=== PATIENT | male | born 1980 | race Caucasian/White ===

== ENCOUNTER → 2016-10-10 | Outpatient (CLI) | payer BC ==
[~2016-10-10] VITALS: Ht 180.3 cm; Wt 79.4 kg
[~2016-10-10] MED LIST: CATHETER FLUSH 10 ML SYR IV PRN
[2016-10-10 07:56] VITALS: BP 121/67
[2016-10-10 08:18] VITALS: BP 122/69
[2016-10-10 08:29] VITALS: BP 185/95
== END ==
LOC: CARD 07:20
PROVIDERS: ATTEND Nurse Practitioner Family
DX: R07.9 Chest pain, unspecified (principal)
CPT/HCPCS: 78452; 93017

== ENCOUNTER → 2016-11-03 | Outpatient (CLI) | payer BC ==
[~2016-11-03] MED LIST changes: +IOHEXOL 350 MG/ML 100 ML (OMNIPAQUE 350) VIAL IV ONE; +NS 100 ML (IVPB) BAG IV ONE
--- NOTE | 2016-11-03 10:55 | Diagnostic Imaging Report ---
PROCEDURE: CT cervical spine without contrast. TECHNIQUE: Multiple contiguous axial images were obtained through the cervical spine without the use of intravenous contrast. Sagittal and coronal reformations were then performed. INDICATION: Neck pain with pressure radiating to the base of the skull. COMPARISON: None. DISCUSSION: No acute fracture, subluxation, or other osseous abnormality identified. No significant degenerative disease. Alignment is anatomic. Shotty appearing lymph nodes are noted bilaterally, likely reactive. Otherwise the visualized soft tissues are unremarkable. IMPRESSION: 1. Negative cervical spine CT. Dictated by: Dictated on workstation # [id number]
--- NOTE | 2016-11-03 10:58 | Diagnostic Imaging Report ---
PROCEDURE: CT head with and without contrast. TECHNIQUE: Multiple contiguous axial images were obtained through the brain before and after the administration of intravenous contrast. Indication: Headache and neck pain. Comparison: None. Discussion: No intracranial hemorrhage, mass, midline shift, or hydrocephalus. The ventricles and sulci are normal size and configuration for age. The visualized orbits, paranasal sinuses, mastoid air cells, and calvarium are unremarkable. No abnormal contrast enhancement identified. Impression: 1. Negative head CT without and with contrast. Dictated by: Dictated on workstation # [id number]
== END ==
LOC: RAD 09:51
PROVIDERS: ATTEND Internal Medicine
DX: R51 Headache (principal); M54.2 Cervicalgia
CPT/HCPCS: 70470; 72125

== ENCOUNTER 2016-12-31 05:41 | Outpatient (CLI) | payer BC ==
[~2016-12-31] VITALS: Ht 180.3 cm; Wt 77.1 kg
[2016-12-31] MEDS ORDERED: ARMO250T2 PO (12:44)
[2016-12-31] MEDS ORDERED: ATOM80CA PO (12:44)
[2016-12-31] MEDS ORDERED: ACYC400T PO (12:44)
[2016-12-31] MEDS ORDERED: BUSP10TA95 PO (12:46)
== END 2016-12-31 12:51 ==
LOC: PREOP 05:41
PROVIDERS: ATTEND Surgery
DX: Z01.818 Encounter for other preprocedural examination (principal); K82.4 Cholesterolosis of gallbladder

== ENCOUNTER 2017-01-02 05:54 | Day surgery (SDC) | payer BC ==
[~2017-01-02] VITALS: Ht 180.3 cm; Wt 77.1 kg
[~2017-01-02 05:54] MED LIST changes: +ACYC400T PO; +ARMO250T2 PO; +ATOM80CA PO; +BUSP10TA95 PO; -CATHETER FLUSH 10 ML SYR IV PRN; -IOHEXOL 350 MG/ML 100 ML (OMNIPAQUE 350) VIAL IV ONE; -NS 100 ML (IVPB) BAG IV ONE
[2017-01-02 06:40] VITALS: BP 129/93
[2017-01-02] MEDS: LACTATED RINGERS 1,000 ML IV PRN ×2 (06:40→08:00)
[2017-01-02] MEDS ORDERED: proPOfol 200 MG/20 ML (DIPRIVAN) VIAL IV ONE (06:45)
[2017-01-02] MEDS ORDERED: ONDANSETRON 4 MG/2 ML (SDV) Z0FRAN ONE (06:45)
[2017-01-02] MEDS ORDERED: fentaNYL INJECTION 100 MCG/2 ML AMP ONE (06:45)
[2017-01-02] MEDS ORDERED: SEVOFLURANE (ULTANE) 15 ML INHAL SOLN ONE ×5 (06:45→08:23)
[2017-01-02] MEDS ORDERED: DEXAMETHASONE 10 MG/ML (DECADRON) 1 ML VIAL ONE (06:45)
[2017-01-02] MEDS ORDERED: LACTATED RINGERS 1,000 ML IV ONE ×2 (06:45→08:23)
[2017-01-02] MEDS ORDERED: LIDOCAINE PF 2% 5 ML (XYLOCAINE) VIAL ONE (06:45)
[2017-01-02] MEDS ORDERED: MIDAZOLAM 2 MG/2 ML (VERSED) VIAL ONE (06:45)
[2017-01-02] MEDS ORDERED: ROCURONIUM 50 MG/5 ML (ZEMURON) VIAL IV ONE (06:46)
[2017-01-02] MEDS ORDERED: BUP/EPI 0.5% 1:200,000 (MARCAINE) 10ML VIAL IJ ONE (06:48)
[2017-01-02 06:56] LABS: MEAN PLATELET VOLUME 9.9 FL (7.4-10.4); RED BLOOD COUNT 4.97 10^6/uL (4.35-5.85); RED CELL DISTRIBUTION WIDTH 12.3 % (10.0-14.5); WHITE BLOOD COUNT 4.6 10^3/uL (4.3-11.0)
[2017-01-02] MEDS ORDERED: metroNIDAZOLE 500MG/100ML IVPB 100 ML IV ONE (07:00)
[2017-01-02] MEDS ORDERED: ceFAZolin 1 GM/NS 50 ML IVPB IV ONE ×2 (07:00)
[2017-01-02 07:14] LABS: ALANINE AMINOTRANSFERASE 27 U/L (0-55); ALBUMIN 4.6 GM/DL (3.2-4.5); ANION GAP 11 MMOL/L (5-14); ASPARTATE AMINO TRANSFERASE 35 U/L (5-34); BILIRUBIN,TOTAL 0.4 MG/DL (0.1-1.0); BLOOD UREA NITROGEN 13 MG/DL (7-18); BUN/CREATININE RATIO 15; CALCIUM 9.2 MG/DL (8.5-10.1); CARBON DIOXIDE 27 MMOL/L (21-32); CHLORIDE 103 MMOL/L (98-107); CREATININE SERUM 0.88 MG/DL (0.60-1.30); GFR ESTIMATED > 60; GLUCOSE 75 MG/DL (70-105); POTASSIUM 4.3 MMOL/L (3.6-5.0); SODIUM 141 MMOL/L (135-145); TOTAL PROTEIN 7.7 GM/DL (6.4-8.2)
--- NOTE | 2017-01-02 07:15 | Progress Note-Pre Operative ---
Pre-Operative Progress Note H&P Reviewed The H&P was reviewed, patient examined and no changes noted. Date Seen by Provider: Dec 29, 2016 Time Seen by Provider: 14:02 Date H&P Reviewed: Jan 02, 2017 Time H&P Reviewed: 07:12 Pre-Operative Diagnosis: Gallbladder polyp ADILIA RESTREPO MD Jan 02, 2017 7:15 am
[2017-01-02] MEDS ORDERED: NEOSTIGMINE (BLOXIVERZ ) 1 MG/1ML 10 ML VIAL ONE (07:48)
[2017-01-02] MEDS ORDERED: ATROPINE INJ 0.4 MG/ML SDV ONE (07:48)
[2017-01-02] MEDS ORDERED: GLYCOPYRROLATE 0.2 MG/ML (ROBINUL) 2 ML VIAL ONE (07:48)
[2017-01-02] MEDS ORDERED: HYDR-3820 PO (08:28)
--- NOTE | 2017-01-02 08:28 | Operative Report ---
Operative Report Date of Procedure/Surgery Jan 02, 2017 Surgeon (s) ADILIA RESTREPO MD Senior Receptionist (s): not applicable Post-Operative Diagnosis same Procedure Performed robotic-assisted cholecystectomy Description of Procedure Anesthesia Type: General Estimated blood loss (mL): minimal Specimen(s) collected/removed gallbladder Description of the Procedure Indication for procedure: This gentleman presented with typical biliary symptoms due to a small polyp in the gallbladder. It was felt reasonable to offer cholecystectomy using robotic assistance. Informed consent was obtained after reviewing the operative details and complications of wound infection and bile leak. The possibility of persistent pain was also discussed. Description of the procedure:he was placed supine on the operative table and general anesthesia induced using an endotracheal tube. A gram of Ancef and 500 mg of Flagyl were administered intravenously as prophylaxis against wound infection. Sequential compression devices were placed around his legs, to minimize the risk of venous thrombosis. Abdomen was prepared and draped in the usual sterile manner. A supraumbilical incision was made and pneumoperitoneum established using a Veress needle. Intra -abdominal pressure was maintained at 15 mmHg, using carbon dioxide insufflation. A 12 mm trocar was placed and anatomy visualized using the high definition, 3-dimensional laparoscope associated with da Gypsy system. Under direct view, I placed an 8 mm trocar over each side of the abdomen, followed by a 5 mm trocar over the left upper quadrant. The patient was then turned into reverse Trendelenburg position, with the right side tilted up. The robotic system was then docked in place. The fundus of the gallbladder was retracted cephalad and infundibulum grasped with Cadiere forceps. Peritoneum overlying Calot's triangle was incised using hook cautery, delineating the cystic duct and artery. Both were divided between locking clips. Cholecystectomy was then completed using the hook cautery. The gallbladder was then placed in an Endo Catch bag and removed via the supraumbilical trocar site. The fascia over this incision was closed using #1 Vicryl using a Del Dangelo device. Skin incisions were closed using 4-0 Vicryl, in a subcuticular fashion. 0.5 percent Marcaine with epinephrine was injected along the incisions, both preemptively and at the conclusion of the operation The procedure well, was extubated in the operating room and taken to the recovery room in a stable condition. Findings of the Procedure see operative report Allergies and Home Medications Allergies Coded Allergies: No Known Drug Allergies (Unverified , 12/31/16) Home Medications Acyclovir 400 Mg Tablet, 400 MG PO BID, (Reported) Armodafinil 250 Mg Tablet, 250 MG PO DAILY, (Reported) Atomoxetine HCl 80 Mg Capsule, 80 MG PO DAILY, (Reported) Buspirone HCl 10 Mg Tablet, 10 MG PO BID, (Reported) ADILIA RESTREPO MD Jan 02, 2017 8:28 am
--- NOTE | 2017-01-02 08:29 | Discharge Inst-Simple/Standard ---
Discharge Inst-Standard Discharge Medications New, Converted or Re-Newed RX: RX on Chart Patient Instructions/Follow Up Plan of Care/Instructions/FU: Band-Aids of in 48 hours. Incentive spirometry. Follow-up in 3 weeks. Activity as Tolerated: Yes Discharge Diet: No Restrictions ADILIA RESTREPO MD Jan 02, 2017 8:29 am
[2017-01-02] MEDS ORDERED: MEPERIDINE (DEMEROL) INJ 50 MG/ML IVP PRN (08:45)
[2017-01-02] MEDS ORDERED: ONDANSETRON 4 MG/2 ML (SDV) Z0FRAN IVP PRN (08:45)
[2017-01-02] MEDS: fentaNYL INJECTION 100 MCG/2 ML AMP IVP PRN ×2 (08:52→09:00)
[2017-01-02] MEDS ORDERED: HYDROcodone/APAP 10 MG/325 MG (LORTAB) TAB PO ONE (09:30)
[2017-01-02 09:35] VITALS: BP 128/92
[2017-01-02 10:05] VITALS: BP 131/99
[2017-01-02 10:35] VITALS: BP 132/96
[2017-01-02] MEDS ORDERED: KETOROLAC 30 MG/ML VIAL IVP ONE (11:15)
[2017-01-02 12:15] VITALS: BP 132/96
[2017-01-02 12:35] VITALS: BP 132/96
== END 2017-01-02 12:35 | disposition home or self-care (01) ==
LOC: SDC 05:54
PROVIDERS: ATTEND Surgery
DX: K82.4 Cholesterolosis of gallbladder (principal); M19.91 Primary osteoarthritis, unspecified site; M54.9 Dorsalgia, unspecified; F32.9 Major depressive disorder, single episode, unspecified; F41.9 Anxiety disorder, unspecified; F90.9 Attention-deficit hyperactivity disorder, unspecified type; Z79.899 Other long term (current) drug therapy
CPT/HCPCS: 36415; 80053; 85027; 87081; 88304; 94664

== ENCOUNTER → 2019-01-20 | Outpatient (CLI) | payer BC ==
[~2019-01-20] MED LIST changes: +HYDR-3820 PO
--- NOTE | 2019-01-20 15:45 | Diagnostic Imaging Report ---
CLINICAL INDICATION: Patient has C-spine and lumbar spine pain. Patient has history of rodeo roping. Patient has history of previous lumbar spine fracture. Exam: MRI of the cervical spine performed without IV contrast. Sequences include sagittal T1, sagittal T2, sagittal T2 fat-sat, axial T1 and axial T2. Comparison: CT scan of the cervical spine without contrast dated 11/03/2016. Findings: There is no acute cervical spine fracture or dislocation. The cervical vertebra have normal T1 and T2 signal. Limited visualization of the posterior fossa is unremarkable. Cervical spinal cord has normal cord caliber. There is no significant paraspinal soft tissue abnormality. C1-C2: Unremarkable. C2-C3: Unremarkable. C3-C4: There is a small broad posterior disc protrusion/herniation. There is moderate central canal stenosis. There is no significant neural foramen narrowing. C4-C5: There is mild diffuse disc bulge with posterior disc spurs and bilateral uncinate spurs. There is mild bilateral facet arthropathy and moderate central canal narrowing with at least moderate left neural foramen narrowing and no significant right neural foramen narrowing. C6-C7: There is a small posterior disc bulge. There is small left uncinate spurs which cause at least mild to moderate left neural foramen narrowing. There is at least mild right neural foramen narrowing. There is minimal impression upon the thecal sac anteriorly. C7-T1: Unremarkable. IMPRESSION: 1: There is cervical spine degenerative disease which is most pronounced from the C3-C7 levels which is described in detail above. 2: There is moderate central canal stenosis at the C3-C4 and C4-C5 levels due to posterior disc spurs and facet arthropathy. Dictated by: Dictated on workstation # [id number]
--- NOTE | 2019-01-20 16:34 | Diagnostic Imaging Report ---
CLINICAL INDICATION: Patient with history of previous lumbar spine fracture. Patient has lumbar spine pain. Exam: MRI of the lumbar spine performed without IV contrast. Sagittal T2, sagittal T1, sagittal T2 fat-sat, and axial T2. Of note, postcontrast imaging was not obtained due to patient being stressed for time. Comparison: None. Findings: There is no acute lumbar spine fracture. There is Modic type I degenerative signal changes scattered throughout the lumbar spine and is most pronounced at the L5-S1 level. The visualized portions of the distal thoracic spinal cord, conus medullaris, and cauda equina nerve roots are unremarkable. The conus medullaris tip is seen at the L1-L2 intervertebral level. There is no significant paraspinal soft tissue abnormality. T12-L1: Unremarkable. L1-L2: There is a mild diffuse disc bulge with mild loss of intervertebral disc height. There is mild bilateral facet arthropathy. There is no significant central spinal canal or neural foramen narrowing. L2-L3: There is roughly 2 mm of grade 1 retrolisthesis of L2 on L3. There is diffuse disc bulge with small annular tear involving the anterior aspect of the disc. There is mild bilateral facet arthropathy. There is minimal impression upon the thecal sac anteriorly. There is mild to moderate right neural foramen narrowing and no significant left neural foramen narrowing. L3-L4: There is diffuse disc bulge and mild loss of intervertebral disc height. There is mild bilateral facet arthropathy. There is moderate to severe right neural foramen narrowing and mild to moderate left neural foramen narrowing. There is no significant central canal narrowing. L4-L5: There is minimal diffuse disc bulge with small posterior disc bulge. There is mild to moderate bilateral facet arthropathy. There is mild to moderate right neural foramen narrowing and mild left neural foramen narrowing. L5-S1: There is chronic bilateral L5 spondylolysis with 6 mm of grade 1 anterolisthesis of L5 on S1. There is a diffuse disc bulge with slight uncovering of the posterior aspect of the disc. There is moderate to severe bilateral facet arthropathy/hypertrophy. There is no significant central canal narrowing. There is severe bilateral neural foramen narrowing. IMPRESSION: 1: There is no acute lumbar spine fracture. 2: There is chronic bilateral L5 spondylolysis with grade 1 anterolisthesis of L5 on S1. 3: There is multilevel lumbar spine degenerative disease, as described above. Dictated by: Dictated on workstation # [id number]
== END ==
LOC: RAD 14:50
PROVIDERS: ATTEND Nurse Practitioner Family
DX: M51.17 Intervertebral disc disorders with radiculopathy, lumbosacral region (principal); M47.27 Other spondylosis with radiculopathy, lumbosacral region; M43.17 Spondylolisthesis, lumbosacral region; M50.90 Cervical disc disorder, unspecified, unspecified cervical region
CPT/HCPCS: 72141; 72148